=== PATIENT | female | born 1960 | race Caucasian/White ===

== ENCOUNTER → 2016-10-05 | Outpatient (CLI) | payer BC, OTHER ==
[2016-01-28 11:58] VITALS: BP 130/79
[~2016-10-05] MED LIST: ADIPEX-P37.5 MG PO; ASPIR LOW81 MG PO; TUMS REGULAR S500 MG PO
== END ==
LOC: RAD 11:34
DX: H53.9 Unspecified visual disturbance (principal); M79.2 Neuralgia and neuritis, unspecified
CPT/HCPCS: A9579

== ENCOUNTER → 2016-11-17 | Outpatient (CLI) | payer BC, OTHER ==
[2016-01-28 11:58] VITALS: BP 130/79
== END ==
LOC: RAD 15:09
DX: M25.562 Pain in left knee (principal); M17.0 Bilateral primary osteoarthritis of knee

== ENCOUNTER → 2017-02-10 | Outpatient (CLI) | payer BC ==
[2016-01-28 11:58] VITALS: BP 130/79
== END ==
LOC: LAB 07:52
DX: Z00.00 Encounter for general adult medical examination without abnormal findings (principal); Z12.11 Encounter for screening for malignant neoplasm of colon

== ENCOUNTER → 2017-04-05 | Outpatient (CLI) | payer BC ==
[2016-01-28 11:58] VITALS: BP 130/79
== END ==
LOC: CARDREHAB 11:45
DX: G47.33 Obstructive sleep apnea (adult) (pediatric) (principal); R06.83 Snoring; F51.9 Sleep disorder not due to a substance or known physiological condition, unspecified; E66.9 Obesity, unspecified; Z68.31 Body mass index [BMI] 31.0-31.9, adult; R53.83 Other fatigue; G47.10 Hypersomnia, unspecified; R09.02 Hypoxemia
CPT/HCPCS: G0399

== ENCOUNTER → 2017-08-23 | Outpatient (CLI) | payer BC ==
[~2017-08-23] VITALS: Ht 170.2 cm; Wt 84.5 kg
[~2017-08-23] MED LIST changes: +CALCITRATE200 MG PO; +GLUCOSAMINE & C1 CA2 PO; +SLOW-MAG 106 MG1 ECT PO
[2017-08-23 14:15] VITALS: BP 150/87
[2017-08-23 14:25] LABS: BASO # 0.1 (0.02-0.10); EOS # 0.2 (0.04-0.40); EOS % 2.8 % (1.0-5.0); HEMATOCRIT 44.2 % (37.0-47.0); LYMPH# 1.8 (1.50-4.00); MEAN CELL VOLUME 88 fl (78-100); MEAN CORPUSCULAR HEMOGLOBIN 28 pg (27-31); MEAN CORPUSCULAR HGB CONC 32 g/dL (33-37); MEAN PLATELET VOLUME 9.5 fl (7.4-10.4); MONO # 0.6 (0.20-0.80); NEU # 4.5 (1.40-6.50); PLATELET COUNT 261 K/mm3 (130-400); RED BLOOD COUNT 5.03 M/mm3 (4.10-5.30); RED CELL DISTRIBUTION WIDTH 13.7 % (11.5-14.5); WHITE BLOOD COUNT 7.1 K/mm3 (4.8-10.8)
[2017-08-23 14:33] LABS: ALBUMIN 4.2 g/dL (3.5-5.0); BUN/CREATININE RATIO 27.4 (6.0-26.0); CALCIUM 9.5 mg/dL (8.4-10.2); POTASSIUM 4.2 mmol/L (3.6-5.0); TOTAL BILIRUBIN 0.6 mg/dL (0.2-1.3); TOTAL PROTEIN 7.1 g/dL (6.3-8.2)
== END ==
LOC: AMSURD 14:01
PROVIDERS: Physician Assistant
DX: R00.2 Palpitations (principal)

== ENCOUNTER → 2018-08-11 | Outpatient (CLI) | payer BC ==
[2017-08-23 14:15] VITALS: BP 150/87
[2018-08-11 07:34] LABS: EOS # 0.2 (0.04-0.40); EOS % 2.8 % (1.0-5.0); HEMATOCRIT 44.1 % (37.0-47.0); LYMPH# 1.4 (1.50-4.00); MEAN CELL VOLUME 89 fl (78-100); MEAN CORPUSCULAR HEMOGLOBIN 28 pg (27-31); MEAN CORPUSCULAR HGB CONC 32 g/dL (33-37); MEAN PLATELET VOLUME 9.4 fl (7.4-10.4); MONO # 0.5 (0.20-0.80); NEU # 3.4 (1.40-6.50); PLATELET COUNT 232 K/mm3 (130-400); RED BLOOD COUNT 4.95 M/mm3 (4.10-5.30); RED CELL DISTRIBUTION WIDTH 13.4 % (11.5-14.5); WHITE BLOOD COUNT 5.4 K/mm3 (4.8-10.8)
[2018-08-11 07:41] LABS: ALBUMIN 4.2 g/dL (3.5-5.0); CALCIUM 9.4 mg/dL (8.4-10.2); POTASSIUM 4.3 mmol/L (3.6-5.0); TOTAL BILIRUBIN 0.7 mg/dL (0.2-1.3)
== END ==
LOC: LAB 07:14
PROVIDERS: Internal Medicine
DX: Z12.11 Encounter for screening for malignant neoplasm of colon (principal); Z00.00 Encounter for general adult medical examination without abnormal findings

== ENCOUNTER → 2019-07-19 | Outpatient (CLI) | payer BC ==
[2017-08-23 14:15] VITALS: BP 150/87
== END ==
LOC: RAD 07:54
DX: M17.12 Unilateral primary osteoarthritis, left knee (principal)

== ENCOUNTER → 2019-08-03 | Outpatient (CLI) | payer BC ==
[2017-08-23 14:15] VITALS: BP 150/87
== END ==
LOC: RAD 14:10
DX: M25.562 Pain in left knee (principal); M79.671 Pain in right foot

== ENCOUNTER → 2019-08-29 | Outpatient (CLI) | payer BC ==
[2017-08-23 14:15] VITALS: BP 150/87
== END ==
LOC: RAD 06:58
DX: M17.12 Unilateral primary osteoarthritis, left knee (principal)

== ENCOUNTER → 2019-11-17 | Outpatient (CLI) | payer BC ==
[2017-08-23 14:15] VITALS: BP 150/87
[2019-11-17 07:59] LABS: EOS # 0.1 (0.04-0.40); EOS % 1.2 % (1.0-5.0); HEMATOCRIT 44.3 % (37.0-47.0); HEMOGLOBIN 14.2 g/dL (12.5-16.0); LYMPH# 1.1 (1.50-4.00); MEAN CELL VOLUME 89 fl (78-100); MEAN CORPUSCULAR HEMOGLOBIN 29 pg (27-31); MEAN CORPUSCULAR HGB CONC 32 g/dL (33-37); MEAN PLATELET VOLUME 9.5 fl (7.4-10.4); MONO # 0.8 (0.20-0.80); NEU # 6.4 (1.40-6.50); PLATELET COUNT 237 K/mm3 (130-400); RED BLOOD COUNT 4.99 M/mm3 (4.10-5.30); RED CELL DISTRIBUTION WIDTH 14.7 % (11.5-14.5); WHITE BLOOD COUNT 8.4 K/mm3 (4.8-10.8)
[2019-11-17 08:06] LABS: ALBUMIN 4.3 g/dL (3.5-5.0); POTASSIUM 4.6 mmol/L (3.5-5.1)
[2019-11-17 08:07] LABS: CALCIUM 9.9 mg/dL (8.3-10.5)
[2019-11-17 08:09] LABS: TOTAL PROTEIN 7.1 g/dL (6.4-8.3)
[2019-11-17 08:35] LABS: D-DIMER 0.25 mg/L FEU (0.15-0.50)
== END ==
LOC: VAS 07:43 → LAB 07:43
PROVIDERS: Nurse Practitioner Family
DX: R60.0 Localized edema (principal)

== ENCOUNTER → 2020-01-16 | Outpatient (CLI) | payer BC ==
[2017-08-23 14:15] VITALS: BP 150/87
[2020-01-16 10:47] LABS: EOS # 0.2 (0.04-0.40); EOS % 1.9 % (1.0-5.0); HEMATOCRIT 44.7 % (37.0-47.0); HEMOGLOBIN 14.1 g/dL (12.5-16.0); LYMPH# 1.3 (1.50-4.00); MEAN CELL VOLUME 89 fl (78-100); MEAN CORPUSCULAR HEMOGLOBIN 28 pg (27-31); MEAN CORPUSCULAR HGB CONC 32 g/dL (33-37); MEAN PLATELET VOLUME 9.3 fl (7.4-10.4); MONO # 0.6 (0.20-0.80); NEU # 6.2 (1.40-6.50); PLATELET COUNT 239 K/mm3 (130-400); RED BLOOD COUNT 5.01 M/mm3 (4.10-5.30); RED CELL DISTRIBUTION WIDTH 13.4 % (11.5-14.5); WHITE BLOOD COUNT 8.4 K/mm3 (4.8-10.8)
[2020-01-16 10:56] LABS: ALBUMIN 4.2 g/dL (3.5-5.0); POTASSIUM 4.6 mmol/L (3.5-5.1)
[2020-01-16 10:58] LABS: CALCIUM 9.2 mg/dL (8.3-10.5)
[2020-01-16 10:59] LABS: TOTAL PROTEIN 7.1 g/dL (6.4-8.3)
[2020-01-16 11:01] LABS: TOTAL BILIRUBIN 0.7 mg/dL (0.2-1.2)
== END ==
LOC: LAB 10:29
PROVIDERS: Physician Assistant
DX: Z76.0 Encounter for issue of repeat prescription (principal); M79.671 Pain in right foot; M10.9 Gout, unspecified; R03.0 Elevated blood-pressure reading, without diagnosis of hypertension

== ENCOUNTER → 2020-06-07 | Outpatient (CLI) | payer BC ==
[2017-08-23 14:15] VITALS: BP 150/87
[2020-06-07 08:55] LABS: ALBUMIN 4.1 g/dL (3.5-5.0); POTASSIUM 4.5 mmol/L (3.5-5.1)
[2020-06-07 08:56] LABS: CALCIUM 9.3 mg/dL (8.3-10.5)
[2020-06-07 08:57] LABS: TOTAL PROTEIN 6.8 g/dL (6.4-8.3)
[2020-06-07 08:59] LABS: EOS # 0.1 (0.04-0.40); EOS % 2.4 % (1.0-5.0); HEMATOCRIT 44.4 % (37.0-47.0); LYMPH# 1.3 (1.50-4.00); MEAN CELL VOLUME 90 fl (78-100); MEAN CORPUSCULAR HEMOGLOBIN 28 pg (27-31); MEAN CORPUSCULAR HGB CONC 32 g/dL (33-37); MEAN PLATELET VOLUME 9.7 fl (7.4-10.4); MONO # 0.6 (0.20-0.80); NEU # 3.8 (1.40-6.50); PLATELET COUNT 270 K/mm3 (130-400); RED BLOOD COUNT 4.94 M/mm3 (4.10-5.30); TOTAL BILIRUBIN 0.8 mg/dL (0.2-1.2); WHITE BLOOD COUNT 5.9 K/mm3 (4.8-10.8)
[2020-06-07 09:04] LABS: MAGNESIUM 1.89 mg/dL (1.60-2.60)
[2020-06-07 10:16] LABS: ERYTHROCYTE SEDIMENTATION RATE 5 mm/hr (0-30)
== END ==
LOC: LAB 07:57
PROVIDERS: Internal Medicine
DX: Z00.00 Encounter for general adult medical examination without abnormal findings (principal); Z12.11 Encounter for screening for malignant neoplasm of colon

== ENCOUNTER → 2020-06-18 | Outpatient (CLI) | payer BC ==
[2017-08-23 14:15] VITALS: BP 150/87
== END ==
LOC: RAD 08:38
DX: M17.0 Bilateral primary osteoarthritis of knee (principal)

== ENCOUNTER → 2021-04-08 | Outpatient (CLI) | payer BC | LOC: LAB 10:09 | DX: Z20.822 Contact with and (suspected) exposure to COVID-19 (principal) ==

== ENCOUNTER → 2023-03-04 | Outpatient (CLI) | payer BC ==
[2023-03-04 13:24] LABS: BASO # 0.02 K/mm3 (0.02-0.10); EOS # 0.16 K/mm3 (0.04-0.40); EOS % 2.2 % (1.0-5.0); HEMATOCRIT 40.3 % (37.0-47.0); HEMOGLOBIN 12.4 g/dL (12.5-16.0); LYMPH# 1.48 K/mm3 (1.50-4.00); MEAN CELL VOLUME 82 fl (78-100); MEAN CORPUSCULAR HEMOGLOBIN 25 pg (27-31); MEAN CORPUSCULAR HGB CONC 31 g/dL (33-37); MEAN PLATELET VOLUME 8.9 fl (7.4-10.4); MONO # 0.51 K/mm3 (0.20-0.80); NEU # 5.21 K/mm3 (1.40-6.50); PLATELET COUNT 276 K/mm3 (130-400); RED BLOOD COUNT 4.92 M/mm3 (4.10-5.30); RED CELL DISTRIBUTION WIDTH 14.5 % (11.5-14.5); WHITE BLOOD COUNT 7.4 K/mm3 (4.8-10.8)
[2023-03-04 13:31] LABS: ALBUMIN 4.2 g/dL (3.4-4.8)
[2023-03-04 13:32] LABS: CALCIUM 9.9 mg/dL (8.3-10.5)
[2023-03-04 13:35] LABS: TOTAL BILIRUBIN 0.6 mg/dL (0.2-1.2)
[2023-03-04 14:21] LABS: D-DIMER 5.54 mg/L FEU (0.15-0.50)
== END ==
LOC: LAB 13:05
PROVIDERS: Internal Medicine
DX: R06.00 Dyspnea, unspecified (principal)
CPT/HCPCS: Q9967

== ENCOUNTER → 2023-03-05 | Outpatient (CLI) | payer BC | LOC: VAS 12:56 → RAD 12:56 | DX: I82.492 Acute embolism and thrombosis of other specified deep vein of left lower extremity (principal) ==

== ENCOUNTER → 2023-04-21 | Day surgery (SDC) | payer BC | END | disposition home or self-care (01) | LOC: MSO 11:53 | DX: H25.812 Combined forms of age-related cataract, left eye (principal); G47.33 Obstructive sleep apnea (adult) (pediatric); Z99.81 Dependence on supplemental oxygen | CPT/HCPCS: 00142; J0171; J2250; V2632 ==

== ENCOUNTER → 2023-08-30 | Outpatient (CLI) | payer BC | LOC: VAS 08:03 | DX: I82.412 Acute embolism and thrombosis of left femoral vein (principal) ==

== ENCOUNTER → 2023-10-25 | Day surgery (SDC) | payer BC ==
[~2023-10-25] MED LIST changes: +fentaNYL 100 MCG/2 ML VIAL ONE
== END | disposition home or self-care (01) ==
LOC: MSO 08:42
DX: Z12.11 Encounter for screening for malignant neoplasm of colon (principal); Z80.0 Family history of malignant neoplasm of digestive organs; K57.30 Diverticulosis of large intestine without perforation or abscess without bleeding; E66.9 Obesity, unspecified
CPT/HCPCS: 00812; J2704; J3010; J7120